=== PATIENT | female | born 1980 | race Caucasian/White ===

== ENCOUNTER 2019-06-30 04:32 | Observation (INO) ==
[2019-06-30] MEDS ORDERED: *HR* FentaNYL (PF) 100 MCG/2 ML VIAL IVP ONE (05:02)
[2019-06-30] MEDS ORDERED: 0.9 % Sodium Chloride 1,000 ML IVC STA (05:02)
[2019-06-30] MEDS ORDERED: Ondansetron 4 MG/2 ML VIAL IVP STA (05:02)
[2019-06-30] MEDS ORDERED: 0.9 % Sodium Chloride 1,000 ML IVC ONE (07:31)
[2019-06-30 08:17] LABS: Basophils # 0.1 K/mcL (0.0-0.2); Basophils % 0.4 %; Eosinophils % 0.2 %; Hematocrit 29.8 % (35.3-44.9); Hemoglobin 9.4 g/dL (11.5-15.4); Immature Granulocytes % 0.4 % (0-4); Lymphocytes # 3.9 K/mcL (0.6-4.6); Lymphocytes % 27.2 %; Mean Corpuscular HGB Conc 31.5 g/dL (31.6-35.5); Mean Corpuscular Hemoglobin 23.9 pg (28.0-33.3); Mean Corpuscular Volume 75.6 fL (83.0-100.0); Mean Platelet Volume 11.6 fL (9.4-12.4); Monocytes # 0.7 K/mcL (0.0-1.3); Monocytes % 4.8 %; Neutrophils # 9.6 K/mcL (1.6-8.9); Platelet Count 277 K/mcL (140-400); Red Blood Count 3.94 M/mcL (3.82-4.97); Red Cell Distribution Width 16.5 % (11.5-14.5); White Blood Count 14.4 K/mcL (4.3-11.1)
[2019-06-30] MEDS ORDERED: *HR* Succinylcholine 200 MG/10 ML VIAL IVP ONE (09:43)
[2019-06-30] MEDS ORDERED: Dexamethasone 4 MG/ML VIAL ONE (09:43)
[2019-06-30] MEDS ORDERED: *HR* Rocuronium Bromide 50 MG/5 ML VIAL ONE (09:43)
[2019-06-30] MEDS ORDERED: Ondansetron 4 MG/2 ML VIAL ONE (09:43)
[2019-06-30] MEDS ORDERED: Lidocaine -MPF 2% 5 ML VIAL ONE (09:43)
[2019-06-30] MEDS ORDERED: *HR* FentaNYL (PF) 100 MCG/2 ML VIAL ONE ×2 (09:45→13:34)
[2019-06-30] MEDS ORDERED: Ringers Solution, Lactated 1,000 ML IVC SCH (09:45)
[2019-06-30] MEDS ORDERED: *HR* Phenylephrine 10 MG/ML VIAL ONE (09:45)
[2019-06-30] MEDS ORDERED: EPHEDrine 50 MG/ML VIAL ONE (09:45)
[2019-06-30] MEDS ORDERED: *HR* Midazolam HCl 2 MG/2 ML VIAL ONE (09:45)
[2019-06-30] MEDS ORDERED: *HR* Propofol 200 MG/20 ML VIAL IVP ONE (09:46)
[2019-06-30] MEDS ORDERED: *HR* Promethazine 25 MG/ML VIAL IVP PRN (10:57)
[2019-06-30] MEDS ORDERED: *HR* HYDROmorphone (PF) 1 MG/ML SYRINGE IVP PRN (10:57)
[2019-06-30] MEDS ORDERED: Acetaminophen IV 1,000 MG/100 ML INFUS..BTL IVPB ONE (10:57)
[2019-06-30] MEDS ORDERED: *HR* HYDROcodone/Acet 5/325 mg TABLET PO ONE (13:40)
[2019-06-30] MEDS ORDERED: Ringers Solution, Lactated 1,000 ML ONE (13:42)
[2019-06-30] MEDS ORDERED: Ibuprofen 600 MG TABLET PO ONE (14:34)
[2019-06-30 14:37] VITALS: BP 99/52
[2019-06-30] MEDS ORDERED: Methylergonovine 0.2 MG/ML AMPUL IM ONE (15:22)
== END 2019-06-30 15:23 | disposition home or self-care (01) ==
LOC: EMEROOARM 04:32 → 1NENULAB 04:32
PROVIDERS: ADMIT Obstetrics & Gynecology; ATTEND Obstetrics & Gynecology